=== PATIENT | male | born 1980 | race Caucasian/White ===

== ENCOUNTER 2017-07-10 14:06 | Emergency (ER) | payer OTHER ==
[~2017-07-10] VITALS: Ht 180.3 cm; Wt 80.0 kg
[2017-07-10] MEDS ORDERED: BUPR150T8 PO (15:04)
[2017-07-10] MEDS ORDERED: buPROPion SR 150mg tablet PO STA (15:08)
[2017-07-10 15:34] LABS: CLARITY,URINE CLEAR (Clear); COLOR,URINE YELLOW (Yellow); GLUCOSE, URINE NEGATIVE (Neg); KETONES,URINE TRACE mg/dl (Neg); LEUKOCYTE ESTERASE ,URINE NEGATIVE (Neg); NITRITES, URINE NEGATIVE (Neg); OCCULT BLOOD,URINE NEGATIVE (Neg); PROTEIN,URINE TRACE mg/dl (Neg); UROBILINOGEN,URINE 0.2 E.U/dL (0.2-1.0)
[2017-07-10 15:37] LABS: UA COLLECTION TYPE VOIDED
[2017-07-10 15:51] VITALS: BP 116/83
[2017-07-10 16:26] LABS: BACTERIA,URINE NONE SEEN /HPF (Neg); RBC,URINE NONE SEEN /HPF (0-2); WBC,URINE 0-4 /HPF (0-4)
[2017-07-10 16:27] LABS: MUCUS STRANDS FEW /LPF (Neg); SQUAMOUS EPITHELIAL CELL,UR FEW /LPF (FEW)
== END 2017-07-10 15:52 | disposition home or self-care (01) ==
LOC: ER 14:08
DX: F32.9 Major depressive disorder, single episode, unspecified (principal)
CPT/HCPCS: 81001; 99283

== ENCOUNTER 2018-08-14 09:26 | Emergency (ER) | payer OTHER ==
[~2018-08-14] VITALS: Ht 180.3 cm; Wt 86.4 kg
[~2018-08-14 09:26] MED LIST: LOPE-144 PO
[2018-08-14 09:30] VITALS: BP 106/68
[2018-08-14] MEDS ORDERED: TETanus/Pertussis (Acell)/Diphther VAC/PF (Tdap-Adult) 0.5ml syringe IM ONE (10:00)
[2018-08-14] MEDS ORDERED: LIDOcaine 1% w/epiNEPHrine 1:200,000 30ml vial IM ONE (10:00)
[2018-08-14] MEDS ORDERED: ketorolac trometh inj. 60 MG/2 ML VIAL IM ONE (10:15)
[2018-08-14] MEDS ORDERED: SULF1TAB49 PO (10:24)
[2018-08-14] MEDS ORDERED: CYCL-1 PO (10:24)
[2018-08-14] MEDS ORDERED: sulfamethoxazole/trimethoprim DS (800/160mg) tablet PO ONE (10:55)
== END 2018-08-14 11:20 | disposition home or self-care (01) ==
LOC: ER 09:26
DX: L72.3 Sebaceous cyst (principal); L02.412 Cutaneous abscess of left axilla; M62.838 Other muscle spasm; Z79.899 Other long term (current) drug therapy
CPT/HCPCS: 10060; 90471; 90715; 96372; 99283; J1885; J3490